=== PATIENT | female | born 1975 | race Caucasian/White ===

== ENCOUNTER → 2016-08-15 13:59 | Outpatient (CLI) | payer OTHER ==
[2013-12-22 13:41] VITALS: BMI 27.3
[~2016-08-15 13:59] MED LIST: BUPROPION XL300 MG PO; ESTRACE1 MG PO; FLUTICASONE PRO16 GM NS; SINGULAIR10 MG PO; SYNTHROID75 MCG PO; TYLENOL PM1 TAB PO; ZYRTEC10 MG PO
== END | disposition home or self-care (01) ==
LOC: D.LABREF 13:59
DX: R31.9 Hematuria, unspecified (principal)

== ENCOUNTER 2016-08-28 05:55 | Day surgery (SDC) | payer OTHER ==
[2016-08-27 12:08] LABS: HEMATOCRIT 43.2 % (36.0-48.0); HEMOGLOBIN 14.1 g/dL (12-16); MCHC 32.6 g/dL (31.0-37.0); MCV 88.7 fL (80.0-100.0); RBC 4.87 10x6/uL (4.00-5.40); WBC 4.5 10x3/uL (4.8-10.8)
[2016-08-27 12:40] LABS: CARBON DIOXIDE 25.2 mmol/L (21.0-32.0); POTASSIUM - SERUM 4.2 mmol/L (3.5-5.1)
[~2016-08-28] VITALS: Ht 175.3 cm; Wt 106.6 kg
[~2016-08-28 05:55] MED LIST changes: +ACIPHEX20 MG PO; +ALDACTONE25 MG PO; +CARAFATE1 G PO; +CARBINOXAMINE PO; +ELAVIL25 MG PO; +LINZESS290 MCG PO; +MOBIC7.5 MG PO; +OMNICEF300 MG PO
[2016-08-28 06:39] VITALS: BP 98/63; Ht 175.3 cm; Wt 106.6 kg
--- NOTE | 2016-08-28 11:45 | NUR ---
1010 UP TO BATHROOM VOIDED
--- NOTE | 2016-08-29 14:58 | OP ---
PATIENT NAME: CARLI SANDOVAL MEDICAL RECORD: [id number] :73 LOCATION:D.OPS ADMISSION DATE: SURGEON: ASAEL MAI MD DATE OF OPERATION: 08/28/2016 SURGEON: Asael Mai MD. ANESTHESIA: MAC by Davy Manning CRNA. PREOPERATIVE DIAGNOSIS: Interstitial cystitis. FINDINGS: Diffusely inflamed bladder. Single ureteral orifices bilaterally. No bladder tumors. PROCEDURES: Cystoscopy, intravesical instillation of Rimso 50% times 50 mL. [employer] lot [id number], expiration date March 2018. ESTIMATED BLOOD LOSS: None. CLINICAL HISTORY: This is a 40-year-old female with a longstanding history of urinary frequency up to every 30 minutes. She also has dysuria, suprapubic pain and dyspareunia. She was investigated by another urologist, but there were no specific findings. Urine cultures have been negative. She has a presumptive diagnosis of interstitial cystitis based on her symptoms alone. She is thought to have cystoscopy for confirmation. If we do see bladder inflammation, we will treat her with intravesical Rimso-50 installation which is an anti-inflammatory. She was given Ancef 2 g IV nylon mender to the OR. DESCRIPTION OF PROCEDURE: The patient was given IV sedation. She was placed in the dorsal lithotomy position, prepped and draped. A 17-Wolof cystoscope with 30-degree lens was used for visualization. Findings are as above. The bladder was diffusely inflamed. No bladder tumors were seen. We drained the bladder through the cystoscope. A 16-Wolof Koch catheter was then inserted into the bladder and the 50 mL of solution were instilled into the bladder. The Koch catheter was then removed. The patient will hold the medication in for about 15 minutes in the recovery room and then be discharged home. I will see her in followup next week to have the second treatment given to her in the office. TRANSINT:[id number] Voice Confirmation ID: [id number] DOCUMENT ID: [id number] ASAEL MAI MD at 1458 CC: [id number] DICTATION DATE: 08/28/16 0939 STONE CUTTER: 08/28/16 1850 [facility] 08/28/16 [place] [address]
== END 2016-08-28 11:00 | disposition home or self-care (01) ==
LOC: D.OPS 05:55 → D.CT 08:10 → D.PAN 08:15 → D.CT 08:15 → D.OPS 08:15 → D.CT 09:30 → D.OPS 11:00
PROVIDERS: Anesthesiology
DX: N30.10 Interstitial cystitis (chronic) without hematuria (principal); K21.9 Gastro-esophageal reflux disease without esophagitis; E03.9 Hypothyroidism, unspecified; Z01.812 Encounter for preprocedural laboratory examination; R31.21 Asymptomatic microscopic hematuria; N81.10 Cystocele, unspecified

== ENCOUNTER → 2016-10-23 10:51 | Outpatient (CLI) | payer OTHER ==
[2016-08-28 06:39] VITALS: BMI 34.7
[2016-10-23 12:14] LABS: ERYTHROCYTE SEDIMENTATION RATE 18 mm/hr (0-20)
[2016-10-24 11:15] LABS: ANA REFLEX - DIRECT Negative (Negative)
== END | disposition home or self-care (01) ==
LOC: D.LAB 10:51
PROVIDERS: Family Medicine
DX: R76.0 Raised antibody titer (principal); R53.83 Other fatigue; M79.7 Fibromyalgia

== ENCOUNTER 2017-08-27 05:30 | Day surgery (SDC) | payer OTHER ==
[2017-08-26 14:46] LABS: BASOPHILS 0.4 % (0-2); EOSINOPHILS 3.8 % (0-7); HEMATOCRIT 42.3 % (36.0-48.0); HEMOGLOBIN 14.2 g/dL (12-16); IMMATURE GRANULOCYTES 0.1 % (0-5); LYMPHOCYTES 43.3 % (15-50); MCH 29.4 pg (26.0-34.0); MCHC 33.6 g/dL (31.0-37.0); MCV 87.6 fL (80.0-100.0); NEUTROPHILS 42.4 % (40-80); PLATELET COUNT 308 10x3/uL (130-400); RBC 4.83 10x6/uL (4.00-5.40); WBC 7.6 10x3/uL (4.8-10.8)
[~2017-08-27] VITALS: Ht 175.3 cm; Wt 111.1 kg
--- NOTE | ~2017-08-27 | OP ---
PATIENT NAME: CARLI SANDOVAL MEDICAL RECORD: [id number] :73 LOCATION:D.OPS ADMISSION DATE: SURGEON: RADHA EUBANKS MD DATE OF OPERATION: 08/27/2017 PREOPERATIVE DIAGNOSES: 1. Abdominal/pelvic pain. 2. Chronic constipation. POSTOPERATIVE DIAGNOSES: 1. Abdominal/pelvic pain. 2. Chronic constipation. PROCEDURE: Diagnostic laparoscopy. SURGEON: Radha Eubanks MD ESTIMATED BLOOD LOSS: Minimal. INTRAVENOUS FLUIDS: Per anesthesia record. ANESTHESIA: General. SPECIMENS: None. FINDINGS: 1. No significant abdominal/pelvic adhesions. 2. No significant adnexal pathology noted. Normal fallopian tubes and ovaries. COMPLICATIONS: None apparent. DESCRIPTION OF PROCEDURE: The patient was taken to the operating room where general anesthesia was achieved without difficulty. The patient was then prepped and draped in normal sterile fashion in the dorsal lithotomy position in the [facility]. The bladder was drained of approximately 100 cc of clear yellow urine and a sponge stick was then placed in the vagina for identification of the vaginal anatomy during the laparoscopy. With this plan, attention was turned to the umbilicus where a 5-mm skin incision was made in the inferior aspect of the umbilicus. The intraperitoneal space was then entered under direct visualization of the laparoscope using the 5-mm bladeless trocar. Following entry into the intraperitoneal space, the introducer was removed and the laparoscope was replaced and intraperitoneal placement was confirmed under direct visualization. The patient was then insufflated without any difficulty and the second 5-mm port was placed in the midline approximately 5 mm above the pubic symphysis. This 5-mm port was placed under direct visualization of the umbilical scope. Survey of the abdomen and pelvis was performed. The scope was then removed. The patient was desufflated and the trocars were removed. The skin was repaired with 3-0 Monocryl in an interrupted fashion. The patient tolerated the procedure well, was transported to postanesthesia recovery stable without incident. TRANSINT:[id number] Voice Confirmation ID: [id number] DOCUMENT ID: [id number] 09/17/2017 Edited to correct date of service, dm. OPERATIVE REPORT [id number] CARLI SANDOVAL RADHA EUBANKS MD CC: [id number] DICTATION DATE: 09/12/17717 [employer] COMPANY MANAGER: 09/12/17 1220 [facility] 08/27/17 [facility] [address] [id number]
[2017-08-27] MEDS ORDERED: PROZAC10 MG PO (06:32)
[2017-08-27] MEDS ORDERED: PROTONIX40 MG PO (06:33)
[2017-08-27] MEDS ORDERED: PLAQUENIL200 MG PO (06:34)
[2017-08-27] MEDS ORDERED: ARMOUR THYROID120 MG PO (06:36)
[2017-08-27] MEDS ORDERED: COMPAZINE10 MG PO (06:37)
[2017-08-27] MEDS ORDERED: BUTALB-APAP-CA1 EACH PO (06:37)
[2017-08-27] MEDS ORDERED: CARAFATE1 G PO (06:38)
[2017-08-27 06:42] VITALS: BP 118/78; Ht 175.3 cm; Wt 111.1 kg
== END 2017-08-27 10:30 | disposition home or self-care (01) ==
LOC: D.OPS 05:30 → D.PAN 07:30 → D.OPS 07:30
PROVIDERS: Obstetrics & Gynecology
DX: R10.2 Pelvic and perineal pain (principal); G89.29 Other chronic pain

== ENCOUNTER 2017-10-10 14:06 | Emergency (ER) | payer OTHER ==
[~2017-10-10] VITALS: Ht 175.3 cm; Wt 112.3 kg
[~2017-10-10 14:06] MED LIST changes: +ARMOUR THYROID120 MG PO; +BUTALB-APAP-CA1 EACH PO; +COMPAZINE10 MG PO; +PLAQUENIL200 MG PO; +PROTONIX40 MG PO; +PROZAC10 MG PO
[2017-10-10 14:34] VITALS: Ht 175.3 cm; Wt 112.3 kg
[2017-10-10 16:19] LABS: BASOPHILS 0.2 % (0-2); EOSINOPHILS 2.6 % (0-7); HEMATOCRIT 41.3 % (36.0-48.0); HEMOGLOBIN 13.5 g/dL (12-16); IMMATURE GRANULOCYTES 0.1 % (0-5); LYMPHOCYTES 39.3 % (15-50); MCH 29.2 pg (26.0-34.0); MCHC 32.7 g/dL (31.0-37.0); MCV 89.4 fL (80.0-100.0); MEAN PLATELET VOLUME 9.2 fL (7.4-10.4); MONOCYTES 10.4 % (2-11); NEUTROPHILS 47.4 % (40-80); PLATELET COUNT 271 10x3/uL (130-400); RBC 4.62 10x6/uL (4.00-5.40); RDW 12.2 % (11.5-14.5); WBC 8.1 10x3/uL (4.8-10.8)
[2017-10-10 16:28] LABS: APTT 25.5 SECONDS (22.8-39.4); INR 0.99 (0.85-1.17); PROTIME 12.7 SECONDS (11.6-15.0)
[2017-10-10 16:29] LABS: D-DIMER-QUANTITATIVE 0.83 ug/mLFEU (0.20-0.54)
[2017-10-10 16:33] LABS: ALBUMIN 4.1 g/dL (3.4-5.0); ANION GAP 12.8 mmol/L (8-16); BILIRUBIN - TOTAL 0.25 mg/dL (0.2-1.3); CALCIUM 9.7 mg/dL (8.5-10.1); CARBON DIOXIDE 28.1 mmol/L (21.0-32.0); POTASSIUM - SERUM 3.9 mmol/L (3.5-5.1); PROTEIN - SERUM 8.4 g/dL (6.4-8.2)
[2017-10-10 20:07] LABS: APPEARANCE CLEAR (CLEAR); BILIRUBIN NEGATIVE (NEGATIVE); COLOR YELLOW (YELLOW); GLUCOSE NEGATIVE (NEGATIVE); KETONE NEGATIVE (NEGATIVE); NITRITE NEGATIVE (NEGATIVE); PROTEIN NEGATIVE (NEGATIVE); SPECIFIC GRAVITY 1.015 (1.005-1.020); UROBILINOGEN NORMAL (NORMAL)
[2017-10-10 20:09] LABS: BACTERIA FEW /hpf (NONE SEEN); EPITHELIAL CELLS 0-5 /hpf (0-5); RED CELLS - URINE 0-5 /hpf (0-5); WHITE CELLS - URINE 0-5 /hpf (0-5)
[2017-10-10] MEDS ORDERED: ROBAXIN-750750 MG PO (21:14)
[2017-10-10 21:35] VITALS: BP 115/67
== END 2017-10-10 21:35 | disposition home or self-care (01) ==
LOC: D.ER 14:06
PROVIDERS: Emergency Medicine
DX: M54.6 Pain in thoracic spine (principal)

== ENCOUNTER 2017-12-12 20:10 | Emergency (ER) | payer OTHER ==
[~2017-12-12] VITALS: Ht 175.3 cm; Wt 111.6 kg
[~2017-12-12 20:10] MED LIST changes: +ROBAXIN-750750 MG PO
[2017-12-12 20:14] VITALS: Ht 175.3 cm; Wt 111.6 kg
[2017-12-12] MEDS ORDERED: NORCO 7.5/325 T1 TA1 PO (21:38)
[2017-12-12] MEDS ORDERED: Crutches ×2 (21:38→21:39)
[2017-12-12 22:34] VITALS: BP 1127/77
== END 2017-12-12 22:03 | disposition home or self-care (01) ==
LOC: D.ER 20:10
DX: S86.911A Strain of unspecified muscle(s) and tendon(s) at lower leg level, right leg, initial encounter (principal); W18.30XA Fall on same level, unspecified, initial encounter; Y93.51 Activity, roller skating (inline) and skateboarding; Y92.331 Roller skating rink as the place of occurrence of the external cause; E07.9 Disorder of thyroid, unspecified

== ENCOUNTER → 2018-03-09 12:03 | Outpatient (CLI) | payer OTHER ==
[2017-12-12 20:14] VITALS: BMI 36.5
[~2018-03-09 12:03] MED LIST changes: +Crutches; +NORCO 7.5/325 T1 TA1 PO
== END | disposition home or self-care (01) ==
LOC: D.RAD 12:03
DX: M25.522 Pain in left elbow (principal)

== ENCOUNTER → 2019-01-18 11:58 | Outpatient (CLI) | payer OTHER ==
[2017-12-12 20:14] VITALS: BMI 36.5
[2019-01-18 12:37] LABS: ANION GAP 10.4 mmol/L (8-16); BILIRUBIN - TOTAL 0.36 mg/dL (0.2-1.3); CALCIUM 9.3 mg/dL (8.5-10.1); CARBON DIOXIDE 31.9 mmol/L (21.0-32.0); CREATININE - SERUM 0.9 mg/dL (0.6-1.3); POTASSIUM - SERUM 3.3 mmol/L (3.5-5.1); PROTEIN - SERUM 7.6 g/dL (6.4-8.2)
== END | disposition home or self-care (01) ==
LOC: D.LAB 11:58
DX: K75.81 Nonalcoholic steatohepatitis (NASH) (principal)

== ENCOUNTER → 2019-07-19 13:54 | Outpatient (CLI) | payer OTHER ==
[2017-12-12 20:14] VITALS: BMI 36.5
== END | disposition home or self-care (01) ==
LOC: D.LAB 13:54
DX: K75.81 Nonalcoholic steatohepatitis (NASH) (principal); R74.8 Abnormal levels of other serum enzymes